=== PATIENT | female | born 1955 | race Caucasian/White ===

== ENCOUNTER 2021-04-01 13:51 | Outpatient (CLI) | payer MEDICARE, OTHER ==
--- NOTE | 2021-04-14 10:07 | Mammography Report ---
BILATERAL DIGITAL SCREENING MAMMOGRAM 3D/2D: 04/01/2021 CLINICAL: Routine screening. Routine screening. Family history of breast cancer. No prior exams were available for comparison. There are scattered fibroglandular elements in both br easts. Reporting delay due to awaiting outside images for comparison. No significant masses, calcifications, or other findings are seen in either breast. IMPRESSION: NEGATIVE There is no mammographic evidence of malignancy. A 1 year screening mammogram is recommended. This exam was interpreted at Station ID: [id number]. NOTE: For mammograms, a report in lay terms will be sent to the patient. Approximately 15% of breast malignancies will not be visualized mammographically. In the management of a palpable breast mass, a negative mammogram must not discourage biopsy of a clinically suspicious lesion. Electronically Signed By: Gee waterman/marla:04/14/2021 07:26:46 ACR BI-RADS Category 1: Negative 3341F PARENCHYMAL PATTERN: (A) - The breast(s) demonstrate(s) scattered fibroglandular densities. BI-RADS CATEGORY: (1) - 1 RECOMMENDATION: (ANNUAL) - Recommend routine annual screening mammography. [id number] 1 year screening LATERALITY: (B)
== END 2021-04-01 13:52 | disposition home or self-care (01) ==
LOC: DI.S 13:51
PROVIDERS: ATTEND Family Medicine
DX: Z12.31 Encounter for screening mammogram for malignant neoplasm of breast (principal); Z80.3 Family history of malignant neoplasm of breast

== ENCOUNTER 2022-06-17 08:47 | Outpatient (CLI) | payer MEDICARE, OTHER ==
[2022-06-17 14:18] LABS: BASOPHILS # (AUTO) 0.1 10^3/uL (0.0-0.1); BASOPHILS % (AUTO) 0.8 %; EOSINOPHILS # (AUTO) 0.1 10^3/uL (0.0-0.7); EOSINOPHILS % (AUTO) 1.5 %; HCT - HEMATOCRIT 43.4 % (37.0-47.0); HGB - HEMOGLOBIN 13.9 g/dL (12.0-16.0); LYMPHOCYTES # (AUTO) 2.9 10^3/uL (1.5-3.5); LYMPHOCYTES % (AUTO) 44.9 %; MEAN CORPUSCULAR HEMOGLOBIN 29.8 pg (27.0-31.0); MEAN CORPUSCULAR VOLUME 93.1 fL (81.0-99.0); MEAN PLATELET VOLUME 10.7 fL (7.9-10.8); MONOCYTES # (AUTO) 0.4 10^3/uL (0.0-1.0); MONOCYTES % (AUTO) 6.7 %; NEUTROPHILS % (AUTO) 45.9 %; PLT - PLATELET COUNT 286 10^3/uL (130-450); RED BLOOD COUNT 4.66 10^6/uL (4.20-5.40); RED CELL DISTRIBUTION WIDTH 13.8 % (12.0-15.0); WHITE BLOOD COUNT 6.6 x10^3/uL (4.8-10.8)
[2022-06-17 15:32] LABS: ALBUMIN/GLOBULIN RATIO 1.4 (1.0-2.2); ALKALINE PHOSPHATASE 64 IU/L (42-121); ALT ALANINE AMINOTRANSFERASE 14 IU/L (10-60); AST ASPARTATE AMINOTRANSFERASE 19 IU/L (10-42); BILIRUBIN,TOTAL 0.8 mg/dL (0.2-1.0); BUN - BLOOD UREA NITROGEN 10 mg/dL (6-20); CALCIUM 9.4 mg/dL (8.5-10.3); CARBON DIOXIDE - CO2 29 mmol/L (21-32); CHLORIDE 104 mmol/L (101-111); CHOLESTEROL 132 mg/dL; CK- CREATINE KINASE 119 IU/L (22-269); CREATININE 0.8 mg/dL (0.4-1.0); GFR - MDRD 71 (>89); GLUCOSE 102 mg/dL (70-100); HDL CHOLESTEROL 67 mg/dL; LDL CHOLESTEROL,CALCULATED 56 mg/dL; LDL/HDL RATIO 0.8 (<4.4); POTASSIUM 4.4 mmol/L (3.5-5.0); SODIUM 137 mmol/L (135-145); TOTAL PROTEIN 6.9 g/dL (6.7-8.2); TRIGLYCERIDES 46 mg/dL; VLDL CHOLESTEROL 9 mg/dL
[2022-06-17 20:39] LABS: ESTIMATED AVERAGE GLUCOSE 126 mg/dL (70-100)
[2022-06-18 08:10] LABS: HCV AB Non Reactive (Non Reactive)
== END 2022-06-17 08:48 | disposition home or self-care (01) ==
LOC: LAB.S 08:47
PROVIDERS: ATTEND Internal Medicine
DX: I10 Essential (primary) hypertension (principal); F90.9 Attention-deficit hyperactivity disorder, unspecified type; C44.91 Basal cell carcinoma of skin, unspecified; E55.9 Vitamin D deficiency, unspecified; F32.A Depression, unspecified; K57.92 Diverticulitis of intestine, part unspecified, without perforation or abscess without bleeding; E78.5 Hyperlipidemia, unspecified; R73.01 Impaired fasting glucose; C43.9 Malignant melanoma of skin, unspecified; Z11.59 Encounter for screening for other viral diseases; C80.1 Malignant (primary) neoplasm, unspecified; Z79.899 Other long term (current) drug therapy
CPT/HCPCS: 36415; 80053; 80061; 82306; 82550; 83036; 83721; 84443; 85025; 86803

== ENCOUNTER 2022-07-16 15:01 | Outpatient (CLI) | payer MEDICARE, OTHER ==
--- NOTE | 2022-07-16 17:56 | DEXA Report ---
PROCEDURE: Dexa Spine and/or Hip INDICATIONS: POST MENOPUSAL TECHNIQUE: Dual energy x-ray absorptiometry (DXA) was performed on a [employer] System. Regions measur ed are the AP Spine, femoral neck, and if needed forearm. COMPARISON: None. FINDINGS: Lumbar Spine: Bone Mineral Density 1.216 g/cm/cm,T score 0.3, normal bone density Left Femoral Neck: Bone Mineral Density 0.876 g/cm/cm, T score -1.2, osteopenia Left Hip: Bone Mineral Density 0.887 g/cm/cm,T score -1.0, normal bone density (T score greater or equal to -1.0: NORMAL) (T score from -1.1 to -2.4: OSTEOPENIA) (T score less than or equal to -2.5 to: OSTEOPOROSIS) Impression: Mild osteopenia. Patient is at increased risk for fracture. Patients with diagnosis of osteoporosis or osteopenia should have regular bone mineral density assess ment. For those eligible for Medicare, routine testing is allowed once every 2 years. Testing frequ ency can be increased for patients who have rapidly progressing disease or for those who are receivin g medical therapy to restore bone mass. Reviewed by: Gee Glass MD on 07/16/2022 5:55 PM PDT Approved by: Gee Glass MD on 07/16/2022 5:55 PM PDT Station ID: [id number]
== END 2022-07-16 15:02 | disposition home or self-care (01) ==
LOC: DI 15:01
PROVIDERS: ATTEND Internal Medicine
DX: M85.89 Other specified disorders of bone density and structure, multiple sites (principal); Z78.0 Asymptomatic menopausal state

== ENCOUNTER 2023-06-09 12:56 | Outpatient (CLI) | payer MEDICARE, OTHER ==
--- NOTE | 2023-06-10 09:56 | Mammography Report ---
BILATERAL DIGITAL SCREENING MAMMOGRAM 3D/2D: 06/09/2023 CLINICAL: Routine screening. Family history of breast cancer. Comparison is made to exam dated: 04/01/2021 mammogram - [facility]. There are scattered areas of fibroglandular density in both breasts (category b / 25%-50% glandular t issue). No significant masses, calcifications, or other findings are seen in either breast. There has been no significant interval change. IMPRESSION: NEGATIVE There is no mammographic evidence of malignancy. A 1 year screening mammogram is recommended. Based on the Tyrer Cuzick model (a risk assessment model) the patient's lifetime risk is 8.5% and her 10 year risk is 5.0%. According to the ACR, ACS, and NCCN guidelines, an annual breast MRI exam opal g with mammogram is recommended if the patient's lifetime risk is 20% or greater. This exam was interpreted at Station ID: [id number]. NOTE: For mammograms, a report in lay terms will be sent to the patient. Approximately 15% of breast malignancies will not be visualized mammographically. In the management of a palpable breast mass, a negative mammogram must not discourage biopsy of a clinically suspicious lesion. Electronically Signed By: Warren arce/marla:06/09/2023 17:38:31 letter sent: No_Letter ACR BI-RADS Category 1: Negative 3341F PARENCHYMAL PATTERN: (A) - The breast(s) demonstrate(s) scattered fibroglandular densities. BI-RADS CATEGORY: (1) - 1 RECOMMENDATION: (ANNUAL) - Recommend routine annual screening mammography. [id number] 1 year screening LATERALITY: (B)
== END 2023-06-09 12:57 | disposition home or self-care (01) ==
LOC: DI.S 12:56
DX: Z12.31 Encounter for screening mammogram for malignant neoplasm of breast (principal); R92.323 Mammographic fibroglandular density, bilateral breasts; Z80.3 Family history of malignant neoplasm of breast

== ENCOUNTER 2023-10-08 08:23 | Outpatient (CLI) | payer MEDICARE, OTHER | END 2023-10-08 08:24 | disposition home or self-care (01) | LOC: LAB.S 08:23 | PROVIDERS: ATTEND Internal Medicine Gastroenterology | DX: K59.00 Constipation, unspecified (principal) | CPT/HCPCS: 36415; 82784; 86231; 86364 ==

== ENCOUNTER 2024-03-26 02:39 | Inpatient (IN) ==
--- NOTE | 2024-03-26 02:57 | ED Physician Documentation ---
PD HPI ABD PAIN Stated complaint Stated Complaint: ABD PX Chief complaint Chief Complaint: Abd Pain Additional information Additional information: 68-year-old with history of ADHD, hypertension, and hyperlipidemia presents with abdominal pain. Patient took 30 mg extended release Adderall earlier today after eating breakfast. 45 minutes later, she developed acute onset abdominal pain which she describes stabbing and severe in nature. She endorses multiple ep isodes of vomiting, now bilious. She did notice some streaks of blood with the last vomitus. She tried dealing with the pain at home all day and eventually tried taking leftover opioid pain medication. She also tried ondansetron which she had for nausea, but continued to have vomiting. No chest pain, dyspnea, diarrhea, or dysuria. She had part of her colon resected last month and has been recovering well. Today was the first day she tried taking her Adderall since the surgery. She has never had a reaction like this when taking Adderall before. She denies any history of postprandial pain. She had a laparascopic colon resection and recttopexy last month that intended to treat long-standing constipation as per the patient and her . Meds/Allgy Home Medications Ambulatory Orders Medication Instructions Recorded Confirmed amlodipine 5 mg-benazepril 20 mg cap PO QPM hypertension 03/26/24 capsule clonidine HCl 0.1 mg tablet See Rx Instructions PO .COMPLEX 03/26/24 03/26/24 dextroamphetamine-amphetamine 15 15 mg PO PRN adhd 03/26/24 mg tablet dextroamphetamine-amphetamine ER 30 mg PO QAM ADHD 03/26/24 03/26/24 30 mg 24hr capsule,extend release ezetimibe 10 mg tablet mg PO QAM 03/26/24 ondansetron 4 mg disintegrating mg PO Q6HR PRN nausea and vomiting 03/26/24 tablet oxycodone 5 mg tablet 5 mg PO Q4H PRN pain 03/26/24 03/26/24 trazodone 50 mg tablet mg PO .qhs insomnia 03/26/24 Allergies Allergies Allergy/AdvReac Type Severity Reaction Status Date / Time Lkvjfti-FVA-NhZ Reductase AdvReac Unknown Verified 03/26/24 02:54 Inhibitor PFSH Social History Social History (Updated 03/26/24 @ 03:23 by Faith Lala RN) Smoking Status: Never smoker Second hand tobacco smoke exposure: No Do you dip or chew tobacco?: No Do you vape?: No Patient requests smoking cessation consult: No Initiate information on smoking cessation: No Living arrangement: At home Marital Status: Living Condition: With spouse/s.o. Support Person: Yes Relationship: Physical Activity: Walking Level: Independent Do you feel safe in your home environment?: Yes Suffered physical, verbal, emotional, or financial abuse?: No History of Abuse: No ETOH Use: None Substance Use: cannabis (any form) Are you sexually active?: No Control Method: None Retired: Yes Service: No Are you following a diet prescribed by a doctor: No Are you following a special diet: No Exam Exam Uncomfortable appearing and wincing in pain. Patient is tachycardic but regular rhythm. She is hypertensive. She does not have a fever. S1 and S2 are audible with no murmurs. Lungs are clear to auscultation bilaterally. Abdomen is soft but mildly tender in the epigastrium. There is no guarding or rebound tenderness. No RUQ tenderness or Villeda's sign. Distal extremities are warm. Speech is fluent, and she is moving all extremities. Results Vitals Vitals: Vital Signs - 24 hr 03/26/24 02:40 03/26/24 03:30 03/26/24 03:56 Temperature 36.4 C L Temperature Source Oral Pulse Rate 135 H Respiratory Rate 22 Blood Pressure 136/94 H O2 Saturation 97 O2 Source Room air Pain Intensity 8 8 2 03/26/24 03:58 03/26/24 05:10 03/26/24 06:00 Temperature 36.3 C L Temperature Source Temporal Artery Scan Pulse Rate 88 83 Respiratory Rate 19 14 Blood Pressure 188/103 H 170/112 H O2 Saturation 96 96 O2 Source Room air Room air Pain Intensity 2 3 5 03/26/24 06:02 Temperature Temperature Source Pulse Rate Respiratory Rate Blood Pressure O2 Saturation O2 Source Pain Intensity 2 Oxygen O2 Source Room air EKG (time done) 03:15: EKG releavant findings:: EKG personally interpreted by author of this note. Relevant findings are: Rate: Rate (enter#) (106) and Tachy Rhythm: Sinus tachycardia [place]: Normal Intervals: Prolonged NM QRS: QRS normal Ischemia: Normal ST segments; No ST elevation c/w ischemia, ST elevation c/w repol, ST depression, Q waves or Hyperacute T waves Computer interpretation: Agree with computer Labs Labs: Laboratory Tests 03/26/24 03/26/24 03:00 06:17 WBC 17.3 H RBC 5.69 H Hgb 17.0 H Hct 51.0 H MCV 89.6 MCH 29.9 MCHC 33.3 RDW 13.7 Plt Count 459 H MPV 8.7 Neut # (Auto) 14.7 H Lymph # (Auto) 1.5 [facility] # (Auto) 1.0 Eos # (Auto) 0.0 Baso # (Auto) 0.1 Absolute Nucleated RBC 0.00 Nucleated RBC % 0.0 Sodium 136 Potassium 3.8 Chloride 97 L Carbon Dioxide 27 Anion Gap 12.0 BUN 12 Creatinine 1.0 Estimated GFR (MDRD) 55 L Glucose 198 H Lactic Acid 1.5 Calcium 10.7 H Total Bilirubin 0.9 AST 13 ALT 8 L Alkaline Phosphatase 93 Total Protein 8.7 Albumin 5.0 Globulin 3.7 Albumin/Globulin Ratio 1.4 Lipase 17 PD Medical Decision Making ED course ED course: Presents with acute onset abdominal pain around 20 hours prior to arrival. Patient reports having continued pain since. She is tachycardic and uncomfortable appearing. I will check labs and ECG, treat pain and nausea, and obtain CTA abdomen pelvis. Differential includes biliary disease, pancreatitis, mesenteric ischemia, gastritis, ACS, and SBO. ECG with sinus tachycardia but no ischemic changes. Labs show leukocytosis possibly secondary to vomiting. Lipase is not elevated so doubt pancreatitis. Liver enzymes are normal, so doubt biliary disease. 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 Her lactic acid is normal, and the small bowel obstruction seems to be the most likely cause of her vomiting and abdominal pain. I spoke with on-call surgeon Dr. Hunt, and she requested NG tube placement. Patient will be admitted to surgical service for small bowel obstruction. Discharge Plan Discharge Patient Disposition: 65 [facility] DC/Xfer Condition: Stable Clinical Impression: Vomiting, Small bowel obstruction Prescriptions: No Action amlodipine-benazepril 5-20 mg capsule PO QPM Patient Comments: take 1 capsule by mouth at bedtime clonidine HCl 0.1 mg tablet See Rx Instructions PO .COMPLEX Rx Instructions: orally BID Midday and evening; dextroamphetamine-amphetamine 30 mg capsule,extended release 24hr 30 mg PO QAM ezetimibe 10 mg tablet PO QAM ondansetron 4 mg tablet,disintegrating PO Q6HR PRN (Reason: nausea and vomiting) Patient Comments: dissolve 1 tablet on top of the tongue and swallow three times a ... (REFER TO PRESCRIPTION NOTES). dextroamphetamine-amphetamine 15 mg tablet 15 mg PO PRN (Reason: adhd) Patient Comments: Patient takes 1.5 tablets (10 mg tablets) by mouth as needed (approx 2x/wk) TO SUPPLEMENT ADDERALL XR trazodone 50 mg tablet PO .qhs Patient Comments: take 1 tablet by mouth at bedtime oxycodone 5 mg tablet 5 mg PO Q4H PRN (Reason: pain) Rx Instructions: Take 1-3 tablets by mouth every 4 hours as needed Print Language: Austrian
[2024-03-26] MEDS ORDERED: iohexoL-300 100 ML VIAL ONE (03:12)
[2024-03-26 03:13] LABS: BASOPHILS # (AUTO) 0.1 10^3/uL (0.0-0.1); BASOPHILS % (AUTO) 0.3 %; EOSINOPHILS % (AUTO) 0.2 %; LYMPHOCYTES # (AUTO) 1.5 10^3/uL (1.5-3.5); LYMPHOCYTES % (AUTO) 8.9 %; MEAN CORPUSCULAR HEMOGLOBIN 29.9 pg (27.0-31.0); MEAN CORPUSCULAR HGB CONC 33.3 g/dL (32.0-36.0); MEAN CORPUSCULAR VOLUME 89.6 fL (81.0-99.0); MEAN PLATELET VOLUME 8.7 fL (7.9-10.8); MONOCYTES % (AUTO) 5.7 %; NEUTROPHILS # (AUTO) 14.7 10^3/uL (1.5-6.6); NEUTROPHILS % (AUTO) 84.6 %; PLT - PLATELET COUNT 459 10^3/uL (130-450); RED BLOOD COUNT 5.69 10^6/uL (4.20-5.40); RED CELL DISTRIBUTION WIDTH 13.7 % (12.0-15.0); WHITE BLOOD COUNT 17.3 x10^3/uL (4.8-10.8)
[2024-03-26] MEDS: SODIUM CHLORIDE 0.9% 1,000 ML IV STA (03:26)
[2024-03-26 03:29] LABS: ALBUMIN/GLOBULIN RATIO 1.4 (1.0-2.2); BILIRUBIN,TOTAL 0.9 mg/dL (0.2-1.0); CALCIUM 10.7 mg/dL (8.5-10.3); POTASSIUM 3.8 mmol/L (3.5-4.5); TOTAL PROTEIN 8.7 g/dL (6.4-8.9)
[2024-03-26] MEDS: ONDANSETRON 4 MG/2 ML VIAL IVP STA (03:29)
[2024-03-26] MEDS: MORPHINE 10 MG/ML VIAL IVP STA (03:30)
[2024-03-26] MEDS: iohexoL-300 100 ML VIAL IVP ONE (03:59)
[2024-03-26] MEDS ORDERED: ONDANSETRON 4 MG/2 ML VIAL IVP PRN (04:05)
[2024-03-26] MEDS: METOCLOPRAMIDE 10 MG/2 ML VIAL IVP PRN (05:57)
[2024-03-26] MEDS: MORPHINE 10 MG/ML VIAL IVP PRN (06:02)
--- NOTE | 2024-03-26 07:38 | CT Report ---
PROCEDURE: CT Angio Abdomen/Pelvis INDICATIONS: acute abdominal pain out of proportion CONTRAST: 90 cc Omnipaque 300 TECHNIQUE: After the administration of intravenous contrast, 2.5 mm thick sections acquired from the diaphragm t o the symphysis. 10 mm maximum-intensity projection (MIP) reformats were then acquired. For radiati on dose reduction, the following was used: automated exposure control, adjustment of mA and/or kV ac cording to patient size. COMPARISON: None FINDINGS: Image quality: Excellent. VESSELS: Aorta: No areas of hemodynamically significant stenosis, vascular occlusion or aneurysmal dilation. Mesenteric arteries: Superior superior mesenteric artery is appear patent. Mild prominence of the di stal celiac artery measuring approximately 6 mm. Inferior mesenteric artery is not clearly identified . Right pelvic arteries: Patent Left pelvic arteries: Patent CHEST: Lung bases and heart: Unremarkable. ABDOMEN: Liver: No solid mass. Gallbladder and biliary tree: Unremarkable. Spleen: No splenomegaly. Pancreas: No pancreatic ductal dilation. Adrenals: No adrenal nodule. Kidneys and ureters: No hydronephrosis. No renal cystic lesion which requires follow up. No solid mas s. Bowel and peritoneum: There are dilated fluid-filled loops of small bowel with greatest transverse di mension measuring 3.4-4.7 cm. Transition point is suspected be a left anterior aspect of the lumbar a bdomen Region of the subcutaneous fat fluid measuring approximately 1.2 x 2.3 cm. Inferior to the transition point focus of fluid measuring approximately 2.4 x 4.6 cm is present. Surgical changes reflecting pa rtial sigmoid resection. Diverticulosis. Lymph nodes: No central or retroperitoneal adenopathy. PELVIS Reproductive organs: Unremarkable. Bladder: No abnormal wall thickening, accounting for underdistension. Pelvic lymph nodes: No pelvic adenopathy by size criteria. Bones: No aggressive osseous abnormality. Left hip arthroplasty. Other: No significant ventral or inguinal hernia. IMPRESSION: Dilated loops of small bowel most consistent with partial small bowel obstruction. Transition point a ppears to be within the region of prior surgical tract. Areas of fluid are identified which may repre sent phlegmon although developing abscess cannot be definitively excluded. Mild prominence at the celiac axis origin suspicious for aneurysmal dilation. Nonvisualized inferior mesenteric artery. Occlusion of indeterminate age cannot be excluded. The above findings are concordant with preliminary report. Reviewed by: Jacqueline Benites MD on 03/26/2024 7:37 AM PST Approved by: Jacqueline Benites MD on 03/26/2024 7:37 AM PST Station ID: [id number]
--- NOTE | 2024-03-26 08:56 | XRAY Report ---
PROCEDURE: XR Chest 1V INDICATIONS: ngt placement TECHNIQUE: One view of the chest was acquired. COMPARISON: None. FINDINGS: Surgical changes and devices: None. Lungs and pleura: No pleural effusions or pneumothorax. No consolidation. Mediastinum: Mediastinal contours appear normal. Heart size is normal. Bones and chest wall: No suspicious bony lesions. Overlying soft tissues appear unremarkable. IMPRESSION: No acute cardiopulmonary process. Reviewed by: Jacqueline Benites MD on 03/26/2024 8:55 AM [facility] Approved by: Jacqueline Benites MD on 03/26/2024 8:55 AM [facility] Station ID: [id number]
--- NOTE | 2024-03-26 09:31 | HISTORY & PHYSICAL EXAMINATION ---
Chief Complaint Chief Complaint Chief Complaint: abdominal pain and vomiting History of Present Illness History of Present Illness HPI Comment/Other: 68yoF presents to ED with 24hours of abdominal pain and non bloody emesis. She is approximately one month s/p laparoscopic resection rectopexy (no mesh) for chronic refractory constipation. She reports that her surgical recovery has been going smoothly and without complications. At baseline preop she required self/manual disimpaction in order to pass BM, since surgery she is maintaining a bowel regimen and beginning to be able to pass stool without disimpaction sometimes. The pain and emesis were of sudden onset yesterday after taking her adderall. She has never had similar prior symptoms. Other abdominal surgical history includes 2 c section. Denies fever, no BM since onset of symptom. Denies h/o heartburn or acid reflux, does not take antacids. Meds/Allgy Home Medications Ambulatory Orders Medication Instructions Recorded Confirmed amlodipine 5 mg-benazepril 20 mg cap PO QPM hypertension 03/26/24 capsule clonidine HCl 0.1 mg tablet See Rx Instructions PO .COMPLEX 03/26/24 03/26/24 dextroamphetamine-amphetamine 15 15 mg PO PRN adhd 03/26/24 mg tablet dextroamphetamine-amphetamine ER 30 mg PO QAM ADHD 03/26/24 03/26/24 30 mg 24hr capsule,extend release ezetimibe 10 mg tablet mg PO QAM 03/26/24 ondansetron 4 mg disintegrating mg PO Q6HR PRN nausea and vomiting 03/26/24 tablet oxycodone 5 mg tablet 5 mg PO Q4H PRN pain 03/26/24 03/26/24 trazodone 50 mg tablet mg PO .qhs insomnia 03/26/24 Allergies Allergies Allergy/AdvReac Type Severity Reaction Status Date / Time Ahtekzs-YER-OaH Reductase AdvReac Unknown Verified 03/26/24 02:54 Inhibitor PFSH Medical History Medical History (Updated 03/26/24 @ 09:37 by Yohana Hunt DO) Hypertension High cholesterol ADHD Depression Arthritis Cancer Surgical History Surgical History (Updated 03/26/24 @ 09:37 by Yohana Hunt DO) S/P laparoscopic colectomy (~02/2024) History of rectopexy (~02/2024) History of x2 History of total right hip arthroplasty History of laminectomy x2 History of colonoscopy Social History Social History (Updated 03/26/24 @ 03:23 by Faith Lala RN) Smoking Status: Never smoker Second hand tobacco smoke exposure: No Do you dip or chew tobacco?: No Do you vape?: No Patient requests smoking cessation consult: No Initiate information on smoking cessation: No Living arrangement: At home Marital Status: Living Condition: With spouse/s.o. Support Person: Yes Relationship: Physical Activity: Walking Level: Independent Do you feel safe in your home environment?: Yes Suffered physical, verbal, emotional, or financial abuse?: No History of Abuse: No ETOH Use: None Substance Use: cannabis (any form) Are you sexually active?: No Control Method: None Retired: Yes Service: No Are you following a diet prescribed by a doctor: No Are you following a special diet: No POLST Patient has POLST: No Review of Systems Status of ROS: 10 or more systems reviewed and unremarkable except as noted in history and below Exam Constitutional normal general appearance and no apparent distress HENMT normocephalic NGT in place - clear gastric fluid with slight coffee ground component Eyes PERRL and EOMs intact bilaterally Neck/C-Spine visual inspection normal Respiratory normal respiratory effort Cardiovascular normal heart rate noted intermittent sinus tachycardia that response to pain meds, Hypertensive Gastrointestinal abdomen soft to palpation, tender to palpation and distended mild distension, no guarding. TTP in bilateral upper abdomen, not ttp in lower abdomen Extremities normal to inspection Neurology no movement abnormality noted Psychiatry mental status grossly normal and oriented x3 Skin skin color normal Conclusion/Plan Problem List (1) Small bowel obstruction: Plan: 68yoF who is 1 mo s/p laparoscopic sigmoid resection suture rectopexy for chronic refractory constipation (at OSH), now with postoperative small bowel obstruction. NGT was placed in the ED and her epigastric pain is already improving with 600cc of clear gastric fluid decompression; there is a small amount of coffee ground component with no h/o GERD/PUD, thus will place on Protonix with the NGT. The transition point appears to be in the LLQ, and there looks to be a small amount of fluid at the lower midline transverse extraction site, but abscess at this time. Scan was not done with oral contrast. There CTA abd shows the KATIA is out, however I suspect it was ligatured during her surgery last month; additional evidence against acute mesenteric ischemia includes a normal lactic acid, the left colon and rectum wall are not thickened and no pneumatosis, and her pain is primarily epigastric and already improving with decompression. Her WBC is 17, and hgb 17/PLTs 459 c/w hypovolemia from ongoing emesis. LFTs/lipase normal. - place on Medsurg on Observation status - NGT to LIWS for bowel decompression - strict NPO - LR @ 125 - pain control with PRN IV tylenol and IV dilaudid - PRN Zofran - BID IV Protonix - ppx lovenox - prn labetalol for SBP >160 - hold home meds while NPO - daily AXR and labs (CBC/BMP) - will plan for gastrografin protocol after 12-24hrs decompression Yohana Hunt DO, FACS General Surgeon, [place] (2) Hypertension: Lab Results 03/26/24 03:00 03/26/24 03:00 Other Lab Results: Laboratory Results - last 24 hr 03/26/24 03/26/24 03:00 06:17 WBC 17.3 H RBC 5.69 H Hgb 17.0 H Hct 51.0 H MCV 89.6 MCH 29.9 MCHC 33.3 RDW 13.7 Plt Count 459 H MPV 8.7 Neut # (Auto) 14.7 H Lymph # (Auto) 1.5 [place] # (Auto) 1.0 Eos # (Auto) 0.0 Baso # (Auto) 0.1 Absolute Nucleated RBC 0.00 Nucleated RBC % 0.0 Sodium 136 Potassium 3.8 Chloride 97 L Carbon Dioxide 27 Anion Gap 12.0 BUN 12 Creatinine 1.0 Estimated GFR (MDRD) 55 L Glucose 198 H Lactic Acid 1.5 Calcium 10.7 H Total Bilirubin 0.9 AST 13 ALT 8 L Alkaline Phosphatase 93 Total Protein 8.7 Albumin 5.0 Globulin 3.7 Albumin/Globulin Ratio 1.4 Lipase 17 Diagnostic Imaging Results Diagnostic Imaging Results: positive Final report reviewed and Read contemporaneously Diagnostic Imaging Results Comments: PROCEDURE: CT Angio Abdomen/Pelvis INDICATIONS: acute abdominal pain out of proportion CONTRAST: 90 cc Omnipaque 300 TECHNIQUE: After the administration of intravenous contrast, 2.5 mm thick sections acquired from the diaphragm to the symphysis. 10 mm maximum-intensity projection (MIP) reformats were then acquired. For radiation dose reduction, the following was used: automated exposure control, adjustment of mA and/or kV according to patient size. COMPARISON: None FINDINGS: Image quality: Excellent. VESSELS: Aorta: No areas of hemodynamically significant stenosis, vascular occlusion or aneurysmal dilation. Mesenteric arteries: Superior superior mesenteric artery is appear patent. Mild prominence of the distal celiac artery measuring approximately 6 mm. Inferior mesenteric artery is not clearly identified. Right pelvic arteries: Patent Left pelvic arteries: Patent CHEST: Lung bases and heart: Unremarkable. ABDOMEN: Liver: No solid mass. Gallbladder and biliary tree: Unremarkable. Spleen: No splenomegaly. Pancreas: No pancreatic ductal dilation. Adrenals: No adrenal nodule. Kidneys and ureters: No hydronephrosis. No renal cystic lesion which requires follow up. No solid mass. Bowel and peritoneum: There are dilated fluid-filled loops of small bowel with greatest transverse dimension measuring 3.4-4.7 cm. Transition point is suspected be a left anterior aspect of the lumbar abdomen Region of the subcutaneous fat fluid measuring approximately 1.2 x 2.3 cm. Inferior to the transition point focus of fluid measuring approximately 2.4 x 4.6 cm is present. Surgical changes reflecting partial sigmoid resection. Diverticulosis. Lymph nodes: No central or retroperitoneal adenopathy. PELVIS Reproductive organs: Unremarkable. Bladder: No abnormal wall thickening, accounting for underdistension. Pelvic lymph nodes: No pelvic adenopathy by size criteria. Bones: No aggressive osseous abnormality. Left hip arthroplasty. Other: No significant ventral or inguinal hernia. IMPRESSION: Dilated loops of small bowel most consistent with partial small bowel obstruction. Transition point appears to be within the region of prior surgical tract. Areas of fluid are identified which may represent phlegmon although developing abscess cannot be definitively excluded. Mild prominence at the celiac axis origin suspicious for aneurysmal dilation. Nonvisualized inferior mesenteric artery. Occlusion of indeterminate age cannot be excluded. The above findings are concordant with preliminary report. Reviewed by: Jacqueline Benites MD on 03/26/2024 7:37 AM PST
[2024-03-26] MEDS: LACTATED RINGERS 1,000 ML IV SCH (09:33)
[2024-03-26] MEDS: PANTOPRAZOLE 40 MG VIAL IVP SCH (10:43)
[2024-03-26] MEDS: LABETALOL 20 MG/4 ML SYRINGE IVP PRN (10:44)
[2024-03-26] MEDS: ONDANSETRON 4 MG/2 ML VIAL IVP PRN (10:44)
[2024-03-26] MEDS: ACETAMINOPHEN 1,000 MG/100 ML 1,000 MG/100 ML BAG IV PRN (13:07)
--- NOTE | 2024-03-26 14:20 | ED Physician Documentation ---
ED Addendum Addendum Addendum: The patient was signed out to me at change of shift, pending evaluation by on-call surgeon Dr. Hunt and final disposition. I did speak with Dr. Hunt after she saw the patient and she stated she would put orders in and that the patient could be admitted his symptoms that were beds. I was informed that there would be a discharge and a bed available for the patient later today at our morning meeting. NG tube was placed for the patient and appeared to be in good placement the abdomen on follow-up chest x-ray. Final impression: 1. Small bowel obstruction Disposition: Admit to surgical service in serious but stable condition. Discharge Plan Discharge Patient Disposition: 65 [facility] DC/Xfer Condition: Stable Clinical Impression: Vomiting, Small bowel obstruction Prescriptions: No Action amlodipine-benazepril 5-20 mg capsule PO QPM Patient Comments: take 1 capsule by mouth at bedtime clonidine HCl 0.1 mg tablet See Rx Instructions PO .COMPLEX Rx Instructions: orally BID Midday and evening; dextroamphetamine-amphetamine 30 mg capsule,extended release 24hr 30 mg PO QAM ezetimibe 10 mg tablet PO QAM ondansetron 4 mg tablet,disintegrating PO Q6HR PRN (Reason: nausea and vomiting) Patient Comments: dissolve 1 tablet on top of the tongue and swallow three times a ... (REFER TO PRESCRIPTION NOTES). dextroamphetamine-amphetamine 15 mg tablet 15 mg PO PRN (Reason: adhd) Patient Comments: Patient takes 1.5 tablets (10 mg tablets) by mouth as needed (approx 2x/wk) TO SUPPLEMENT ADDERALL XR trazodone 50 mg tablet PO .qhs Patient Comments: take 1 tablet by mouth at bedtime oxycodone 5 mg tablet 5 mg PO Q4H PRN (Reason: pain) Rx Instructions: Take 1-3 tablets by mouth every 4 hours as needed Print Language: Macedonian
[2024-03-26] MEDS ORDERED: SODIUM CHLORIDE FLUSH 0.9% 10 ML SYRINGE IVP PRN (15:16)
[2024-03-26] MEDS: SODIUM CHLORIDE FLUSH 0.9% 10 ML SYRINGE IVP SCH (16:06)
[2024-03-26] MEDS: ENOXAPARIN 40 MG/0.4 ML SYRINGE SUBQ SCH (16:06)
[2024-03-27] MEDS: HYDROmorphone 1 MG/ML CARPUJECT IVP PRN (05:32)
[2024-03-27 05:53] LABS: BASOPHILS % (AUTO) 0.4 %; EOSINOPHILS # (AUTO) 0.1 10^3/uL (0.0-0.7); EOSINOPHILS % (AUTO) 1.7 %; HGB - HEMOGLOBIN 12.8 g/dL (12.0-16.0); LYMPHOCYTES # (AUTO) 1.9 10^3/uL (1.5-3.5); LYMPHOCYTES % (AUTO) 36.8 %; MEAN CORPUSCULAR HEMOGLOBIN 30.5 pg (27.0-31.0); MEAN CORPUSCULAR HGB CONC 33.7 g/dL (32.0-36.0); MEAN CORPUSCULAR VOLUME 90.5 fL (81.0-99.0); MEAN PLATELET VOLUME 8.9 fL (7.9-10.8); MONOCYTES # (AUTO) 0.7 10^3/uL (0.0-1.0); MONOCYTES % (AUTO) 13.7 %; NEUTROPHILS # (AUTO) 2.5 10^3/uL (1.5-6.6); NEUTROPHILS % (AUTO) 47.2 %; PLT - PLATELET COUNT 359 10^3/uL (130-450); RED CELL DISTRIBUTION WIDTH 14.2 % (12.0-15.0); WHITE BLOOD COUNT 5.3 x10^3/uL (4.8-10.8)
[2024-03-27 06:10] LABS: MAGNESIUM 1.8 mg/dL (1.7-2.3)
[2024-03-27 06:16] LABS: CALCIUM 8.9 mg/dL (8.5-10.3); CREATININE 0.8 mg/dL (0.6-1.3); PHOSPHORUS 3.5 mg/dL (2.5-5.0); POTASSIUM 4.2 mmol/L (3.5-4.5)
--- NOTE | 2024-03-27 07:47 | PROVIDER PROGRESS NOTE ---
Subjective General Admit Date: 03/26/24 Other Other Information/Narrative: Pain improved this AM. No nausea at this time. Tolerating NG well. Worried about upcoming cruise. Review of Systems Status of ROS: 10 or more systems reviewed and unremarkable except as noted in history and below Exam Exam Gen: NAD, alert and oriented HEENT: NG in place with 1400mL bilious output since placement CV: RRR Pulm: non labored, on RA Abd: soft, non tender, non distended, no r/g. Incision well healed. Impression/Plan Problem List (1) Small bowel obstruction: (2) Hypertension: (3) ADHD: Problem List Comment Problem List: 68 y/o F s/p laparoscopic sigmoid resection suture rectopexy, argenis one month ago, for chronic refractory constipation (at OSH), now with postoperative small bowel obstruction. NGT in place with 1400mL bilious output since placement. The transition point appears to be in the LLQ, and there looks to be a small amount of fluid at the lower midline transverse extraction site, most likely a small seroma. There CTA abd shows the KATIA is out, likely ligated during her surgery last month, no suspicion for acute thrombosis given PE and other labs. Leukocytosis has resolved with fluid resusciatation. Plan for SBFT this AM. I discussed with the patient that this can be diagnostic and therapeutic. We remain hopeful that her obstruction will resolve spontaneously. - patient in Observation status. Will discuss status with CM today. - NGT clamped for SBFT this AM. - strict NPO - LR @ 125 - pain control with PRN IV tylenol and IV dilaudid - PRN Zofran - BID IV Protonix - ppx lovenox - HTN: prn labetalol for SBP >160 - ADHD: hold home meds while NPO
--- NOTE | 2024-03-27 08:47 | XRAY Report ---
PROCEDURE: XR Abdomen 1 V INDICATIONS: sbo TECHNIQUE: One view of the abdomen acquired. COMPARISON: CT August 24, 2024 FINDINGS: Surgical changes and devices: There is a right hip arthroplasty. There is a nasogastric tube with its tip in the stomach. Bowel: There is again seen dilated loops of bowel suggesting an obstructive process. There is moderat e stool in the right colon. No free air. Soft tissues: No suspicious abdominal calcifications. Visualized solid organ contours appear normal in size. Bones: No suspicious bony lesions. IMPRESSION: Persistent dilated loops of small bowel suggesting a partial small bowel obstruction. Nasogastric tub e in standard position. Reviewed by: Bird Decker MD on 03/27/2024 8:46 AM PST Approved by: Bird Decker MD on 03/27/2024 8:46 AM PST Station ID: [id number]
[2024-03-27] MEDS: DIATR MEGLU/DIATRIZOATE SODIUM 120 ML BOTTLE PO ONE (11:37)
--- NOTE | 2024-03-27 14:18 | PHARMACY PROGRESS NOTE ---
Best Possible Medication History Admit Date and Time: 03/27/24 1014 Home Medications Medication Instructions Recorded Confirmed Type amlodipine 5 mg-benazepril 20 mg 1 cap PO QPM hypertension 03/26/24 03/27/24 History capsule clonidine HCl 0.1 mg tablet 0.1 mg PO BID 03/26/24 03/27/24 History dextroamphetamine-amphetamine 15 15 mg PO DAILY PRN adhd 03/26/24 03/27/24 History mg tablet dextroamphetamine-amphetamine ER 30 mg PO QAM ADHD 03/26/24 03/26/24 History 30 mg 24hr capsule,extend release ezetimibe 10 mg tablet 10 mg PO QAM 03/26/24 03/27/24 History ondansetron 4 mg disintegrating 4 mg PO Q6HR PRN nausea and 03/26/24 03/27/24 History tablet vomiting oxycodone 5 mg tablet 5 mg PO Q4H PRN pain 03/26/24 03/27/24 History trazodone 50 mg tablet 50 mg PO HS insomnia 03/26/24 03/27/24 History Processed by: Pharmacy Medications reviewed in ED?: No Medication History completed: Yes Patient Interview: Completed Secondary Source(s): Insurance records [facility] Statement: As the person ultimately responsible for medication therapy, providers are able to order a medication from an existing home medication list in [facility] via the "Reconcile Routine" prior to Confirmation of that medication by support director. Such practice is discouraged except when the physician, in their clinical judgment, deems that a medical need exists for a medication without regard to previous use.
[2024-03-27] MEDS: ONDANSETRON 4 MG/2 ML VIAL IVP STA (17:22)
[2024-03-27] MEDS: HYDROmorphone 1 MG/ML CARPUJECT IVP STA (17:24)
[2024-03-28 05:28] LABS: BASOPHILS % (AUTO) 0.6 %; EOSINOPHILS # (AUTO) 0.1 10^3/uL (0.0-0.7); EOSINOPHILS % (AUTO) 1.1 %; HCT - HEMATOCRIT 40.6 % (37.0-47.0); HGB - HEMOGLOBIN 12.7 g/dL (12.0-16.0); LYMPHOCYTES # (AUTO) 1.4 10^3/uL (1.5-3.5); LYMPHOCYTES % (AUTO) 25.8 %; MEAN CORPUSCULAR HEMOGLOBIN 29.1 pg (27.0-31.0); MEAN CORPUSCULAR HGB CONC 31.3 g/dL (32.0-36.0); MEAN CORPUSCULAR VOLUME 93.1 fL (81.0-99.0); MEAN PLATELET VOLUME 8.8 fL (7.9-10.8); MONOCYTES # (AUTO) 0.8 10^3/uL (0.0-1.0); MONOCYTES % (AUTO) 14.5 %; NEUTROPHILS # (AUTO) 3.1 10^3/uL (1.5-6.6); NEUTROPHILS % (AUTO) 57.8 %; PLT - PLATELET COUNT 335 10^3/uL (130-450); RED BLOOD COUNT 4.36 10^6/uL (4.20-5.40); RED CELL DISTRIBUTION WIDTH 13.9 % (12.0-15.0); WHITE BLOOD COUNT 5.4 x10^3/uL (4.8-10.8)
[2024-03-28 05:47] LABS: CALCIUM 8.5 mg/dL (8.5-10.3); CREATININE 0.7 mg/dL (0.6-1.3); MAGNESIUM 1.9 mg/dL (1.7-2.3); PHOSPHORUS 3.6 mg/dL (2.5-5.0); POTASSIUM 3.9 mmol/L (3.5-4.5)
--- NOTE | 2024-03-28 07:03 | PROVIDER PROGRESS NOTE ---
Subjective General Admit Date: 03/27/24 Other Other Information/Narrative: Patient's pain and nausea much improved after placing NG back to suction last night. She was able to get some rest overnight. Denies pain, nausea this AM. Anxious about having surgery, willing to return to [place] if Dr. Pereyra would like her to transfer. Exam Exam Gen: NAD, alert and oriented HEENT: NG in place with 2400mL bilious output in last 24 hours CV: RRR Pulm: non labored, on RA Abd: soft, non tender, non distended, no r/g. Incision well healed. Impression/Plan Problem List (1) Small bowel obstruction: (2) Hypertension: (3) ADHD: Problem List Comment Problem List: 68 y/o F s/p laparoscopic sigmoid resection suture rectopexy, miguel ángelatley one month ago, for chronic refractory constipation (at [facility] by Dr. Mary Pereyra), now with postoperative small bowel obstruction. NGT in place with 2400mL bilious output in last 24 hours. The transition point appears to be in the LLQ, and there looks to be a small amount of fluid at the lower midline transverse extraction site, most likely a small seroma. Patient failed small bowel follow through trial yesterday. AM XR pending. There CTA abd shows the KATIA is out, likely ligated during her surgery last month, no suspicion for acute thrombosis given PE and other labs. Leukocytosis has resolved with fluid resuscitation. Bowel obstruction not improving with conservative managment. I have a call out to Dr. Pereyra to hopefully obtain her prior operative report and to discuss this patient's plan of care. Patient is willing to return to [facility] if Dr. Pereyra would like her to transfer. - patient inpatient status (as of 03/27) - NGT to [facility] - strict NPO - LR @ 125 - pain control with PRN IV tylenol and IV dilaudid - PRN Zofran - BID IV Protonix - ppx lovenox - HTN: prn labetalol for SBP >160 - ADHD: hold home meds while NPO
--- NOTE | 2024-03-28 08:01 | XRAY Report ---
PROCEDURE: XR SBFT Challenge Panel INDICATIONS: SMALL BOWEL OBSTRUCTION COMPARISON: Abdomen radiograph dated 03/27/[address] abdomen /pelvis dated 03/26/2024 CONTRAST: Oral contrast FINDINGS: KUB: Preprocedural hris administrator film demonstrates multiple dilated air-filled loops of bowel. No suspiciou s abdominal calcifications. Visualized solid organ contours appear normal. No suspicious bony abnor malities. Nasogastric tube is in place. Small bowel: Administration of oral contrast via nasogastric tube was given. Contrast material was no t visualized beyond the duodenum until approximately 6 hours. At that time oral contrast within diste nded loops of small bowel is seen in the upper abdomen not beyond the left lower quadrant. Oral contr ast is still visualized in the stomach. At the 20-hour film, no oral contrast is seen in the stomach. Small amount of oral contrast is still seen in visualized dilated loop of small bowel in the right lower abdomen. There are numerous scatt ered distended small bowel throughout the abdomen. Although previously opacified dilated loops of sma ll bowel noted to the left lower quadrant, no definite oral contrast is visualized beyond the left lo wer quadrant, the colon, or rectum. The patient reported no bowel movements since beginning of the ex am. Mucosal folds are smooth and of normal thickness. No strictures, intraluminal masses, or extrinsic mass effects are noted. IMPRESSION: Numerous persistent dilated loops of small bowel seen throughout the abdomen with significant interva l clearing of previously visualized contrast to the level of the left lower quadrant. However, no def inite oral contrast visualized beyond the left lower quadrant, colon, or rectum. Additionally patient reports no bowel movement since the start of this exam. Findings may represent high-grade partial sm all bowel obstruction. Reviewed by: Gee Glass MD on 03/28/2024 8:00 AM [facility] Approved by: Gee Glass MD on 03/28/2024 8:00 AM PST Station ID: [id number]
--- NOTE | 2024-03-28 09:58 | XRAY Report ---
PROCEDURE: XR Abdomen 1 V INDICATIONS: sbo TECHNIQUE: One view of the abdomen acquired. COMPARISON: 03/27/2024. FINDINGS: Surgical changes and devices: Anterior tube tip is below the left hemidiaphragm. Prior right total hi p arthroplasty is seen. Bowel: Air distended bowel loops throughout abdomen is seen decreased in extent compared to previous study. Small amount of residual oral contrast material from previous small bowel cartilage chest is s een in the colon. No gross free air. Soft tissues: No suspicious abdominal calcifications. Visualized solid organ contours appear normal in size. Bones: No suspicious bony lesions. IMPRESSION: Finding is suggestive of resolving small bowel obstruction with interval decrease in small bowel loop distention and distal progression of oral contrast compared to previous day. Reviewed by: Iron Briggs MD on 03/28/2024 9:57 AM PST Approved by: Iron Briggs MD on 03/28/2024 9:57 AM PST Station ID: [id number]
[2024-03-29 05:53] LABS: BASOPHILS % (AUTO) 0.3 %; EOSINOPHILS # (AUTO) 0.1 10^3/uL (0.0-0.7); EOSINOPHILS % (AUTO) 1.3 %; HCT - HEMATOCRIT 36.2 % (37.0-47.0); LYMPHOCYTES # (AUTO) 2.2 10^3/uL (1.5-3.5); LYMPHOCYTES % (AUTO) 32.2 %; MEAN CORPUSCULAR HGB CONC 33.1 g/dL (32.0-36.0); MEAN CORPUSCULAR VOLUME 90.5 fL (81.0-99.0); MEAN PLATELET VOLUME 9.5 fL (7.9-10.8); MONOCYTES # (AUTO) 0.9 10^3/uL (0.0-1.0); MONOCYTES % (AUTO) 12.8 %; NEUTROPHILS # (AUTO) 3.6 10^3/uL (1.5-6.6); NEUTROPHILS % (AUTO) 53.1 %; PLT - PLATELET COUNT 332 10^3/uL (130-450); RED CELL DISTRIBUTION WIDTH 13.3 % (12.0-15.0); WHITE BLOOD COUNT 6.8 x10^3/uL (4.8-10.8)
[2024-03-29 06:13] LABS: CALCIUM 8.2 mg/dL (8.5-10.3); CREATININE 0.6 mg/dL (0.6-1.3); MAGNESIUM 1.8 mg/dL (1.7-2.3); PHOSPHORUS 3.4 mg/dL (2.5-5.0); POTASSIUM 3.5 mmol/L (3.5-4.5)
[2024-03-29] MEDS: HYDROmorphone 0.5 MG/0.5 ML SYRINGE IVP PRN ×2 (08:04→16:51)
--- NOTE | 2024-03-29 08:13 | PROVIDER PROGRESS NOTE ---
Subjective General Admit Date: 03/27/24 Other Other Information/Narrative: Patient did not tolerate her NG being clamped last night. NG placed back to suction around 2100 with 1500mL bilious fluid out overnight. This morning, she is having some occasional cramping but no nausea. She did have another BM yesterday (2 total), and has passed a small amount of flatus. She would like to proceed with surgery today. Review of Systems Status of ROS: 10 or more systems reviewed and unremarkable except as noted in history and below Exam Exam Gen: NAD, alert and oriented HEENT: NG in place with 1500mL bilious output since returning NG to suction last night CV: RRR Pulm: non labored, on RA Abd: soft, non tender, non distended, no r/g. Incision well healed. Impression/Plan Problem List (1) Small bowel obstruction: (2) Hypertension: (3) ADHD: Problem List Comment Problem List: 68 y/o F s/p laparoscopic sigmoid resection suture rectopexy, on 03/[address] Mary Pereyra at [facility], for chronic refractory constipation, now with postoperative small bowel obstruction. NGT in place with 1500mL bilious output overnight. The transition point appears to be in the LLQ, and there looks to be a small amount of fluid at the lower midline transverse extraction site, most likely a small seroma. Patient had increased bowel function yesterday but failed PO trial yesterday afternoon, now back to suction. There CTA abd shows the KATIA is out, and I was able to confirm that this was ligated at the time of her surgery, by reviewing the operative report. This does not appear to be an ischemic process but a mechanical obstruction likely from scarring in the LLQ (extensive scarring and diverticulitis changes were noted in this area at the time of the patient's prior procedure). Leukocytosis has resolved with fluid resuscitation. Bowel obstruction not improving with conservative management. I discussed the patient with Dr. Pereyra yesterday who did not recommend transfer. Patient would also like to stay at [facility]. Plan for surgery this afternoon. I have discussed r/b/a of surgery with the patient and her extensively. Consent signed. - patient inpatient status (as of 03/27) - NGT to [facility] - strict NPO - LR @ 125 - pain control with PRN IV tylenol and IV dilaudid - PRN Zofran - BID IV Protonix - ppx lovenox - HTN: prn labetalol for SBP >160 - ADHD: hold home meds while NPO
--- NOTE | 2024-03-29 10:26 | XRAY Report ---
PROCEDURE: XR Abdomen 1 V INDICATIONS: sbo TECHNIQUE: One view of the abdomen acquired. COMPARISON: X-ray March 28, 2024 FINDINGS: Surgical changes and devices: There is a nasogastric tube with its tip in the stomach. Bowel: Bowel gas pattern continues to improve. There remains a nonspecific pattern. Soft tissues: No suspicious abdominal calcifications. Visualized solid organ contours appear normal in size. Bones: There is a right hip prosthesis. IMPRESSION: Nasogastric tube in standard position. Improving bowel gas pattern. Reviewed by: Bird Decker MD on 03/29/2024 10:25 AM PST Approved by: Bird Decker MD on 03/29/2024 10:25 AM [id number] Station ID: [id number]
--- NOTE | 2024-03-29 14:27 | ANESTHESIA PROCEDURE NOTE ---
Pre-Anesthesia VS, & Labs Diagnosis Surgical Diagnosis:: SBO Procedure Procedure: Ex lap Vitals Vital Signs: Temp Pulse Resp BP Pulse Ox O2 Flow Rate 36.5 C 83 16 155/109 H 95 0 03/29/24 08:01 03/29/24 08:01 03/29/24 08:01 03/29/24 08:01 03/29/24 08:01 03/27/24 13:00 Height (in): 5 ft 5 in Weight (kg): 73.5 kg Body Mass Index: 26.9 BMI Classification: Overweight NPO NPO: >8 hours Is Patient ?: Not Applicable Lab Results Current Lab Results: Laboratory Tests 03/29/24 05:15: WBC 6.8, RBC 4.00 L, Hgb 12.0, Hct 36.2 L, MCV 90.5, MCH 30.0, MCHC 33.1, RDW 13.3, Plt Count 332, MPV 9.5, Neut # (Auto) 3.6, Lymph # (Auto) 2.2, Graves # (Auto) 0.9, Eos # (Auto) 0.1, Baso # (Auto) 0.0, Absolute Nucleated RBC 0.00, Nucleated RBC % 0.0, Sodium 132 L, Potassium 3.5, Chloride 100 L, Carbon Dioxide 27, Anion Gap 5.0 L, BUN 8, Creatinine 0.6, Estimated GFR (MDRD) 99, Glucose 87, Calcium 8.2 L, Phosphorus 3.4, Magnesium 1.8 03/28/24 05:19: WBC 5.4, RBC 4.36, Hgb 12.7, Hct 40.6, MCV 93.1, MCH 29.1, MCHC 31.3 L, RDW 13.9, Plt Count 335, MPV 8.8, Neut # (Auto) 3.1, Lymph # (Auto) 1.4 L, Graves # (Auto) 0.8, Eos # (Auto) 0.1, Baso # (Auto) 0.0, Absolute Nucleated RBC 0.00, Nucleated RBC % 0.0, Sodium 137, Potassium 3.9, Chloride 101, Carbon Dioxide 28, Anion Gap 8.0, BUN 11, Creatinine 0.7, Estimated GFR (MDRD) 83 L, Glucose 102, Calcium 8.5, Phosphorus 3.6, Magnesium 1.9 03/27/24 05:38: WBC 5.3, RBC 4.20, Hgb 12.8, Hct 38.0, MCV 90.5, MCH 30.5, MCHC 33.7, RDW 14.2, Plt Count 359, MPV 8.9, Neut # (Auto) 2.5, Lymph # (Auto) 1.9, Graves # (Auto) 0.7, Eos # (Auto) 0.1, Baso # (Auto) 0.0, Absolute Nucleated RBC 0.00, Nucleated RBC % 0.0, Sodium 136, Potassium 4.2, Chloride 102, Carbon Dioxide 28, Anion Gap 6.0, BUN 14, Creatinine 0.8, Estimated GFR (MDRD) 71 L, G lucose 126 H, Calcium 8.9, Phosphorus 3.5, Magnesium 1.8 03/26/24 06:17: Lactic Acid 1.5 03/26/24 03:00: WBC 17.3 H, RBC 5.69 H, Hgb 17.0 H, Hct 51.0 H, MCV 89.6, MCH 29.9, MCHC 33.3, RDW 13.7, Plt Count 459 H, MPV 8.7, Neut # (Auto) 14.7 H, Lymph # (Auto) 1.5, Graves # (Auto) 1.0, Eos # (Auto) 0.0, Baso # (Auto) 0.1, Absolute Nucleated RBC 0.00, Nucleated RBC % 0.0, Sodium 136, Potassium 3.8, Chloride 97 L, Carbon Dioxide 27, Anion Gap 12.0, BUN 12, Creatinine 1.0, Estimated GFR (MDRD) 55 L, Glucose 198 H, Calcium 10.7 H, Total Bilirubin 0.9, AST 13, ALT 8 L , Alkaline Phosphatase 93, Total Protein 8.7, Albumin 5.0, Globulin 3.7, Albumin/Globulin Ratio 1.4, Lipase 17 Lab results reviewed: Yes 03/29/24 05:15 03/29/24 05:15 Meds/Allgy Home Medications Ambulatory Orders Medication Instructions Recorded Confirmed amlodipine 5 mg-benazepril 20 mg 1 cap PO QPM hypertension 03/26/24 03/27/24 capsule clonidine HCl 0.1 mg tablet 0.1 mg PO BID 03/26/24 03/27/24 dextroamphetamine-amphetamine 15 15 mg PO DAILY PRN adhd 03/26/24 03/27/24 mg tablet dextroamphetamine-amphetamine ER 30 mg PO QAM ADHD 03/26/24 03/26/24 30 mg 24hr capsule,extend release ezetimibe 10 mg tablet 10 mg PO QAM 03/26/24 03/27/24 ondansetron 4 mg disintegrating 4 mg PO Q6HR PRN nausea and 03/26/24 03/27/24 tablet vomiting oxycodone 5 mg tablet 5 mg PO Q4H PRN pain 03/26/24 03/27/24 trazodone 50 mg tablet 50 mg PO HS insomnia 03/26/24 03/27/24 Allergies Allergies Allergy/AdvReac Type Severity Reaction Status Date / Time [id number] Reductase AdvReac Unknown Verified 03/26/24 02:54 Inhibitor PFSH Medical History Medical History (Updated 03/29/24 @ 14:22 by Sendy Cruz) Hypertension High cholesterol ADHD Depression Arthritis Cancer hx of melanoma Surgical History Surgical History (Updated 03/26/24 @ 09:37 by Yohana Hunt DO) S/P laparoscopic colectomy (~02/2024) History of rectopexy (~02/2024) History of x2 History of total right hip arthroplasty History of laminectomy x2 History of colonoscopy Social History Social History (Updated 03/29/24 @ 14:23 by Sendy Cruz) Smoking Status: Never smoker Second hand tobacco smoke exposure: No Do you dip or chew tobacco?: No Do you vape?: No Patient requests smoking cessation consult: No Initiate information on smoking cessation: No Living arrangement: At home Marital Status: Living Condition: With spouse/s.o. 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 Are you sexually active?: No Control Method: None Retired: Yes Service: No Are you following a diet prescribed by a doctor: No Are you following a special diet: No POLST Patient has POLST: No POLST Status: Full Code Anesthesia Exam (Expanded) Exam General: Alert and Oriented x3 Dental: WNL Mouth Openin Fingerbreadth Neck Mobility: Normal Mallampati classification: III Thyromental Distance: 4-6 cm Respiratory: Lungs clear and Normal breath sounds Cardiovascular: Regular rate Mental/Cognitive Status: Alert/Oriented X3 Plan Plan Anesthesia Type: General Consent for Procedure(s) Verified and Reviewed: Yes Code Status: Attempt Resuscitation ASA Classification ASA classification: 2-Mild systemic disease Is this case an emergency?: Yes
[2024-03-29] MEDS ORDERED: ROCURONIUM 50 MG/5 ML VIAL ONE (14:35)
[2024-03-29] MEDS ORDERED: DEXAMETHASONE 4 MG/ML VIAL ONE (14:35)
[2024-03-29] MEDS ORDERED: SUCCINYLCHOLINE 200 MG/10 ML VIAL ONE (14:35)
[2024-03-29] MEDS ORDERED: PROPOFOL 200 MG/20 ML VIAL IVP ONE (14:35)
[2024-03-29] MEDS ORDERED: LIDOCAINE-PF 2% 10 ML AMP SUBQ ONE (14:35)
[2024-03-29] MEDS ORDERED: ONDANSETRON 4 MG/2 ML VIAL ONE (14:35)
[2024-03-29] MEDS ORDERED: fentaNYL 100 MCG/2 ML VIAL ONE ×3 (14:43→16:56)
[2024-03-29] MEDS ORDERED: LIDOCAINE 1%-EPI 1:100000 20 ML MDV ONE (15:07)
[2024-03-29] MEDS ORDERED: BUPIVACAINE 0.5% PF 10 ML VIAL ONE (15:08)
[2024-03-29] MEDS ORDERED: metroNIDAZOLE 500 MG/100 ML 500 MG/100 ML BAG ONE (15:10)
[2024-03-29] MEDS ORDERED: ePHEDrine 50 MG/ML VIAL IVP ONE (15:14)
[2024-03-29] MEDS ORDERED: PHENYLEPHRINE HCL 0.5 MG/5 ML AMPULE ONE (15:23)
[2024-03-29] MEDS ORDERED: SUGAMMADEX 200 MG/2 ML VIAL IVP ONE (16:14)
[2024-03-29] MEDS: LACTATED RINGERS 1,000 ML IV SCH (16:35)
[2024-03-29] MEDS ORDERED: MORPHINE 2 MG/ML CARPUJECT IVP PRN (16:42)
[2024-03-29] MEDS ORDERED: NALOXONE 0.4 MG/ML VIAL IVP PRN (16:42)
[2024-03-29] MEDS ORDERED: ATROPINE ABBOJECT 1 MG/10 ML SYRINGE IVP PRN (16:42)
[2024-03-29] MEDS ORDERED: ePHEDrine 50 MG/ML VIAL IVP PRN (16:42)
[2024-03-29] MEDS ORDERED: ONDANSETRON 4 MG/2 ML VIAL IVP PRN (16:42)
[2024-03-29] MEDS: ceFAZolin 2 GM VIAL IVP STA (16:47)
[2024-03-29] MEDS: metroNIDAZOLE 500 MG/100 ML 500 MG/100 ML BAG IV STA (16:47)
--- NOTE | 2024-03-29 16:48 | OPERATIVE REPORT ---
Operative Report General Admit Date: 03/27/24 Procedure Data: Operation Date: 03/29/24 15:00 Proposed Procedures p Diagnostic Laparoscopy, POSSIBLE EXPLORATORY LAPAROTOMY, POSSIBLE BOWEL RESECTION(Not Applicable) - Anna Maradiaga MD Actual Procedures p Diagnostic Laparoscopy, laprascopic assisted ventral hernia repair(Not Applicable) - Anna Maradiaga MD Pre-Op Diagnosis: SMALL BOWEL OBSTRUCTION Pre-Op Diagnosis: SMALL BOWEL OBSTRUCTION Anesthesia Type General Case Staff Anesthesia Provider: Domonique Dobbins Anesthesia Provider: Radha FRANKS Assisting Provider: Yohana Hunt Case Times Into Recovery: 03/29/24 16:35 Procedure Start: 03/29/24 15:21 Procedure End: 03/29/24 16:25 Time out: 03/29/24 15:19 Pre-Op Diagnosis: small bowel obstruction Post Op Diagnosis: incarcerated ventral hernia Procedure Note Intake, IV Amount (ml): 800 Estimated Blood Loss (ml): 10 Output, Urine Amount (ml): 140 Pathology: none Indications: Patient presented to the hospital with a small bowel obstruction. She has failed conservative management and Gastrografin challenge. Despite having a couple of bowel movements, she continues not to be able to tolerate her NG clamped for more than a couple of hours. I discussed the risks, benefits, and alternatives of surgery with the patient and her . These include bleeding, infection, damage to surrounding structures, and the possible need for further surgeries or procedures. They voiced understanding, their questions were answered, and they wish to proceed. A consent was signed by the patient. Findings: 1. Incarcerated incisional ventral hernia 2. Viable bowel 3. Laparoscopic assisted primary closure of hernia Complications: None Other Other Information/Narrative: The patient was taken to the operative suite and placed in supine position. Due to the patient's recent surgery and suspicion for a surgically complex case, I did ask my partner Dr. Muller talk to assist. She was present for the duration of the case. A Taylor catheter was inserted prior to prepping and draping. The patient was given preoperative antibiotics. The patient was then prepped and draped in the usual sterile fashion. A preop surgical timeout was performed. Attention was turned to the patient's abdomen. A 12 mm Connelly port was placed in the supraumbilical midline using the patient's prior incision. 2, 0 Vicryl sutures were placed at the superior and inferior aspect of this incision in a [id number] fashion to close the fascia at the end of the case. A finger sweep was done prior to inserting the Connelly port port. The Connelly port was placed, the balloon dilated, and insufflation undertaken to 15 mmHg. A 5 mm 30 degree scope was inserted through the port there was obvious incarceration of bowel in the anterior abdominal wall in the left lower quadrant. This finding was interesting as no obvious hernia was identified on the patient's preoperative CT scan, nor was 1 easily palpable on physical exam. 2 more 5 mm ports were placed in the right and left mid abdomen under direct laparoscopic vision. An atraumatic bowel grasper was placed through the right abdominal port and used to gently reduce the bowel within the hernia the bowel was noted to be viable and healthy appearing. It pinked up very quickly and bowel contents readily flowed into the decompressed distal bowel. The hernia was at the left lateral aspect of the prior Pfannenstiel incision and appear not to be recent in nature. The local needle was used as a seeker needle to identify the location of the hernia. It was difficult to palpate due to scarring in the area. Local was injected. A 15 blade scalpel was used to extend the prior Pfannenstiel incision laterally over the hernia. The abdomen was deflated as the hernia was entered. Dissection was carried down to the level of the fascia. 2-0 PDS was used in a vavnlb-ry-uigmr fashion to place 3 sutures to reapproximate the fascia in this location. Next, the abdomen was reinflated and the hernia repair was noted to be airtight. The bowel grasper was also used to palpate the hernia to ensure that there were no areas that were or not well reapproximated. The subcutaneous tissues were irrigated and hemostasis was confirmed. The abdomen was then deflated and all laparoscopic ports were removed. The Connelly port was closed and the fascia was confirmed to be well reapproximated in this location as well. Next, 4-0 Monocryl was used to reapproximate all skin incisions in a subcuticular fashion. A sterile dressing of Dermabond was placed. All sponge needle counts were correct at the end of the case. The Taylor and NG tube were removed at the end of the case. The patient was extubated in the operating room and transferred to the recovery room in stable condition. There were no complications.
[2024-03-29] MEDS ORDERED: HYDROmorphone 0.5 MG/0.5 ML SYRINGE ONE (16:49)
[2024-03-29] MEDS: fentaNYL 100 MCG/2 ML VIAL IVP PRN (16:57)
[2024-03-29] MEDS ORDERED: oxyCODONE 5 MG TABLET PO PRN (17:31)
[2024-03-29] MEDS ORDERED: HYDROmorphone 0.5 MG/0.5 ML SYRINGE IVP PRN (17:31)
[2024-03-29] MEDS: ACETAMINOPHEN 325 MG TABLET PO SCH (17:49)
[2024-03-29] MEDS: IBUPROFEN 600 MG TABLET PO SCH (17:50)
--- NOTE | 2024-03-29 18:45 | ANESTHESIA POST OP EVALUATION ---
Anesthesia Post Eval Post Anesthesia Eval Vitals: Last Vital Signs Temp 36.1 C L 03/29/24 17:40 Pulse 86 03/29/24 17:40 Resp 16 03/29/24 17:40 BP 138/86 H 03/29/24 17:40 Pulse Ox 94 03/29/24 17:40 O2 Flow Rate 2 03/29/24 17:51 CV Function Including HR & BP: Stable Pain Control: Satisfactory Nausea & Vomiting: Negative Mental Status: Baseline Respiratory Status: Airway Patent Hydration Status: Satisfactory Anesthesia Complications: None
[2024-03-30 05:39] LABS: BASOPHILS % (AUTO) 0.1 %; HCT - HEMATOCRIT 36.5 % (37.0-47.0); HGB - HEMOGLOBIN 11.8 g/dL (12.0-16.0); LYMPHOCYTES # (AUTO) 1.8 10^3/uL (1.5-3.5); LYMPHOCYTES % (AUTO) 23.8 %; MEAN CORPUSCULAR HEMOGLOBIN 29.7 pg (27.0-31.0); MEAN CORPUSCULAR HGB CONC 32.3 g/dL (32.0-36.0); MEAN CORPUSCULAR VOLUME 91.9 fL (81.0-99.0); MEAN PLATELET VOLUME 9.1 fL (7.9-10.8); MONOCYTES # (AUTO) 0.8 10^3/uL (0.0-1.0); MONOCYTES % (AUTO) 10.1 %; NEUTROPHILS # (AUTO) 5.1 10^3/uL (1.5-6.6); NEUTROPHILS % (AUTO) 65.6 %; PLT - PLATELET COUNT 313 10^3/uL (130-450); RED BLOOD COUNT 3.97 10^6/uL (4.20-5.40); RED CELL DISTRIBUTION WIDTH 13.3 % (12.0-15.0); WHITE BLOOD COUNT 7.7 x10^3/uL (4.8-10.8)
[2024-03-30 05:51] LABS: CALCIUM 8.1 mg/dL (8.5-10.3); CREATININE 0.6 mg/dL (0.6-1.3); POTASSIUM 3.5 mmol/L (3.5-4.5)
[2024-03-30 07:53] VITALS: BP 149/97; TEMP 97.3; O2SAT 95
--- NOTE | 2024-03-30 08:29 | PROVIDER PROGRESS NOTE ---
Subjective General Admit Date: 03/27/24 Procedure Date: 03/29/24 Post Op Days: 1 Procedure Performed: diagnostic laparoscopy, lap assisted repair of incarcerated ventral hernia Other Other Information/Narrative: Patient reports minimal pain, no nausea this AM. Tolerating clears well. States she is hungry but a little afraid to eat. +flatus, +BM. No acute events overnight. Review of Systems Status of ROS: 10 or more systems reviewed and unremarkable except as noted in history and below Exam Exam Gen: NAD, alert and oriented HEENT: NG out CV: RRR Pulm: non labored, on RA Abd: soft, non tender, non distended, no r/g. Incisions c/d/i Impression/Plan Problem List (1) Ventral hernia with bowel obstruction: Plan: resolved (2) Hypertension: (3) ADHD: Problem List Comment Problem List: 68 y/o F s/p laparoscopic sigmoid resection suture rectopexy, on 03/[address] Mary Pereyra at [facility], for chronic refractory constipation, presented with postoperative small bowel obstruction. Failed conservative management. Patient s/p diagnostic laparoscopy with laparoscopic assisted ventral hernia repair, POD#1. Bowel was reduced from incarcerated hernia, all viable. Obstruction resolved. - patient inpatient status (as of 03/27) - NGT removed after surgery - clears, will adat to soft this AM - SLIV - multimodal pain control with PO meds, IV prn for breakthrough pain - PRN Zofran - ppx lovenox - HTN: prn labetalol for SBP >160, will restart home meds on discharge - ADHD: restart home meds on discharge Likely discharge this afternoon.
--- NOTE | 2024-03-30 11:49 | XRAY Report ---
PROCEDURE: XR Abdomen 1 V INDICATIONS: sbo TECHNIQUE: One view of the abdomen acquired. COMPARISON: X-ray abdomen 03/29/2024 FINDINGS: Surgical changes and devices: Right hip arthroplasty. Bowel: Bowel gas pattern demonstrates fluid-filled loops of small bowel more prominent when compared to prior exam. Soft tissues: No suspicious abdominal calcifications. Visualized solid organ contours appear normal in size. Bones: No suspicious bony lesions. IMPRESSION: Interval prominence of fluid-filled small bowel loops most consistent with worsening partial small navdeep wel obstruction. Reviewed by: Jacqueline Benites MD on 03/30/2024 11:48 AM PST Approved by: Jacqueline Benites MD on 03/30/2024 11:48 AM PST Station ID: [id number]
--- NOTE | 2024-03-30 13:33 | Discharge Summary ---
"Discharge Summary Admit Date: 03/27/24 Discharge Date: 03/30/24 Discharging Provider: Hiren Code Status: Attempt Resuscitation DIAGNOSES Admission Diagnoses: small bowel obstruction hypertension ADD Discharge Diagnoses with Status of Each Condition: small bowel obstruction secondary to incarcerated ventral hernia, resolved hypertension, stable ADD, stable HPI History of Present Illness: 68yoF presents to ED with 24hr history of abdominal pain and non bloody emesis. She is approximately one month s/p laparoscopic resection rectopexy (no mesh) for chronic refractory constipation. She reports that her surgical recovery has been going smoothly and without complications. At baseline preop she required self/manual disimpaction in order to pass BM, since surgery she is maintaining a bowel regimen and beginning to be able to pass stool without disimpaction sometimes. The pain and emesis were of sudden onset yesterday after taking her adderall. She has never had similar prior symptoms. Other abdominal surgical history includes 2 c section. Denies fever, no BM since onset of symptom. Denies h/o heartburn or acid reflux, does not take antacids. CONSULTS | PROCEDURES Consultations: none Procedures: diagnostic laparoscopy, laparoscopic assisted ventral hernia repair by Dr. Maradiaga on 03/29/24 HOSPITAL COURSE Hospital Course: The patient was admitted, an NG was placed, and conservative management of her small bowel obstruction was trialed. A small bowel follow through was unsuccessful at resolving her symptoms. She did have a large BM and felt some relief, but did not tolerate a trial of clamping her NG so we elected to proceed with surgery. Bowel was noted to be incarcerated within a small ventral hernia at the left lateral aspect of her prior Pfanninstel incision. This was repaired. Postoperatively, the patient was able to tolerate a diet and had a bowel movement. She is feeling much better and is stable for discharge to home. ALLERGIES Allergies Allergy/AdvReac Type Severity Reaction Status Date / Time [place]-YHV-HvN Reductase AdvReac Unknown Verified 03/26/24 02:54 Inhibitor MEDICATIONS Ambulatory Orders Medication Instructions Recorded Confirmed amlodipine 5 mg-benazepril 20 mg 1 cap PO QPM hypertension 03/26/24 03/27/24 capsule clonidine HCl 0.1 mg tablet 0.1 mg PO BID 03/26/24 03/27/24 dextroamphetamine-amphetamine 15 15 mg PO DAILY PRN adhd 03/26/24 03/27/24 mg tablet dextroamphetamine-amphetamine ER 30 mg PO QAM ADHD 03/26/24 03/26/24 30 mg 24hr capsule,extend release ezetimibe 10 mg tablet 10 mg PO QAM 03/26/24 03/27/24 ondansetron 4 mg disintegrating 4 mg PO Q6HR PRN nausea and 03/26/24 03/27/24 tablet vomiting oxycodone 5 mg tablet 5 mg PO Q4H PRN pain 03/26/24 03/27/24 trazodone 50 mg tablet 50 mg PO HS insomnia 03/26/24 03/27/24 oxycodone 5 mg tablet 5 mg PO Q4H PRN pain #7 tabs 03/30/24 PHYSICAL EXAM AT DISCHARGE Physical Exam Other/Comments: Gen: NAD, alert and oriented CV: RRR Pulm: non labored, on RA Abd: soft, appropriate incisional ttp, no r/g Ext: no c/c/e LABS 03/30/24 05:24 03/30/24 05:24 QUALITY (Female Hip Fx Only) Was patient sent home on osteoporosis medication?: No FOLLOW UP Follow Up: Dr. Maradiaga in 2 weeks TIME SPENT Time Spent in Discharge (Minutes): 32 Discharge Plan Discharge Patient Disposition: Home, Self Care Condition: Stable Medically Cleared Date:: 03/30/24 Prescriptions: New oxycodone 5 mg Tablet 5 mg PO Q4H PRN (Reason: pain) Qty: 7 0RF Continued amlodipine-benazepril 5-20 mg capsule 1 cap PO QPM Patient Comments: take 1 capsule by mouth at bedtime clonidine HCl 0.1 mg tablet 0.1 mg PO BID Rx Instructions: orally BID Midday and evening; dextroamphetamine-amphetamine 30 mg capsule,extended release 24hr 30 mg PO QAM ezetimibe 10 mg tablet 10 mg PO QAM ondansetron 4 mg tablet,disintegrating 4 mg PO Q6HR PRN (Reason: nausea and vomiting) Patient Comments: dissolve 1 tablet on top of the tongue and swallow three times a ... (REFER TO PRESCRIPTION NOTES). dextroamphetamine-amphetamine 15 mg tablet 15 mg PO DAILY PRN (Reason: adhd) Patient Comments: Patient takes 1.5 tablets (10 mg tablets) by mouth as needed (approx 2x/wk) TO SUPPLEMENT ADDERALL XR trazodone 50 mg tablet 50 mg PO HS Patient Comments: take 1 tablet by mouth at bedtime oxycodone 5 mg tablet 5 mg PO Q4H PRN (Reason: pain) Activity Restrictions: Additional Comments Activity Restrictions/Additional Instructions: DIET - You may resume your normal diet if there is no nausea or vomiting. You may want to avoid spicy, greasy, or heavy foods today to minimize gas. - If nausea or vomiting occurs, don't eat or drink anything for one hour. Then start drinking small amounts of clear liquids. Later, add crackers, gradually building up to your usual diet. ACTIVITY INSTRUCTIONS * Ambulate daily * May climb stairs * Do NOT lift/push/pull more than 20 lbs for six weeks after surgery. DRESSING CARE * Leave Dermabond on incisions until it falls off, ok to trim edges if it peels * May shower and gently wash incisions with soap and water * Do not immerse incisions in bath. * No swimming ADDITIONAL DISCHARGE INSTRUCTIONS Apply ice to the incisions as often as tolerated for at least 72 hours, 15 min on, 20 min off. This will help with pain and bruising and swelling. MEDICATIONS * Take ibuprofen and Tylenol as needed for pain, AND use oxycodone as needed for pain not controlled with ibuprofen and Tylenol; may take both meds together. * Use stool softener daily while taking narcotic pain meds. ANESTHESIA PRECAUTIONS Anesthesia and medications given during surgery remain in your body up to 24 hours. This may slow reaction time and/or decrease coordination. FOR THE NEXT 24 HOURS: - Have a responsible person with you - Avoid any activity that requires you to be alert and coordinated - DO NOT DRIVE a motor vehicle for 24 hours or as long as you are taking opioid pain medication - Do not drink alcoholic beverages - Do not smoke unattended Patient Date Escort Date RN Date Diet: Regular Print Language: [place] Patient Instructions: Surgery Anesthesia After Stand Alone Forms: PCP List Follow-up Care: Anna Maradiaga MD [Provider Admit Priv/Credential] - (04/12/24 at 11:15)"
== END 2024-03-30 14:20 | disposition home or self-care (01) | DRG 355 ==
LOC: ED 02:39 → MS2 02:39
PROVIDERS: ADMIT Surgery; ATTEND Surgery
DX: R00.0 Tachycardia, unspecified; K56.609 Unspecified intestinal obstruction, unspecified as to partial versus complete obstruction; F90.9 Attention-deficit hyperactivity disorder, unspecified type; Z90.49 Acquired absence of other specified parts of digestive tract; E78.00 Pure hypercholesterolemia, unspecified; I10 Essential (primary) hypertension; E78.5 Hyperlipidemia, unspecified; K43.6 Other and unspecified ventral hernia with obstruction, without gangrene